=== PATIENT | female | born 1950 | race Caucasian/White ===

== ENCOUNTER 2016-04-04 10:38 | Emergency (ER) | payer OTHER ==
[~2016-04-04] VITALS: Ht 162.6 cm; Wt 52.2 kg
[2016-04-04] MEDS ORDERED: HYDROCODONE-AP1 EAC6 PO (12:23)
[2016-04-04] MEDS ORDERED: XARELTO10 MG PO (12:23)
[2016-04-04] MEDS ORDERED: AUGMENTIN 875875 MG PO (12:24)
[2016-04-04] MEDS ORDERED: PREDNISONE 5 MG5 M1 PO (12:24)
[2016-04-04] MEDS ORDERED: NORVASC5 MG PO (12:24)
[2016-04-04] MEDS ORDERED: CITALOPRAM HBR40 MG PO (12:24)
[2016-04-04] MEDS ORDERED: TACROLIMUS1 MG PO (12:24)
[2016-04-04] MEDS ORDERED: LEVOTHYROXIN0.025 MG PO (12:27)
[2016-04-04] MEDS ORDERED: CITRATE OF MAG296 ML PO (12:32)
[2016-04-04] MEDS ORDERED: COLACE100 MG PO (12:32)
[2016-04-04 12:34] VITALS: BP 121/64
== END 2016-04-04 12:34 | disposition home or self-care (01) ==
LOC: ER 10:38
DX: K59.00 Constipation, unspecified (principal); Z94.4 Liver transplant status; I10 Essential (primary) hypertension; Z98.890 Other specified postprocedural states

== ENCOUNTER 2016-06-11 17:21 | Emergency (ER) | payer OTHER ==
[~2016-06-11] VITALS: Ht 162.6 cm; Wt 49.4 kg
--- NOTE | ~2016-06-11 | EKG ---
[place] [address] [facility] [employer] [place] [address] ELECTROCARDIOGRAM REPORT Name: MEME BURGOS Room #: DEP Yulisa#: [id number] Admission: 06/11/16 Attend Phys: Discharge: 06/11/16 Date of : 50 Report #: [id number] THIS REPORT FOR: //name// [facility] ED Test Date: 2016-06-11 Test Time: 17:28:59 Pat Name: MEME BURGOS Department: Room: Gender: F [employer] [address] Freight: BENNY : 1950 Requested By: Alex Villeda Order Number: [id number] MD: Teo Adams Measurements Intervals [place] Rate: 76 P: 20 UT: 166 QRS: -20 QRSD: 88 T: 27 QT: 434 QTc: 489 Interpretive Statements Sinus rhythm Inferior infarct, old No previous ECG available for comparison Electronically Signed On 06-12-2016 15:28:56 CDT by Teo Adams [email or web address] <ELECTRONICALLY SIGNED> By: Teo Adams MD 06/12/16 1528 1728 1728 Teo Adams MD /JACQUIE
[~2016-06-11 17:21] MED LIST: AUGMENTIN 875875 MG PO; CITALOPRAM HBR40 MG PO; CITRATE OF MAG296 ML PO; COLACE100 MG PO; HYDROCODONE-AP1 EAC6 PO; LEVOTHYROXIN0.025 MG PO; NORVASC5 MG PO; PREDNISONE 5 MG5 M1 PO; TACROLIMUS1 MG PO; XARELTO10 MG PO
[2016-06-11 18:34] LABS: HEMATOCRIT 46.9 % (37.0-47.0); HEMOGLOBIN 16.1 gm/dL (12.0-15.0); MCH 30.9 pg (26.0-34.0); MCHC 34.2 g/dL (28.0-37.0); MCV 90.3 fL (80.0-100.0); RBC 5.2 mil/uL (4.20-5.00); RDW 13.9 % (10.5-14.5); WBC 7.7 thou/uL (4.0-11.0)
[2016-06-11 18:40] LABS: ANION GAP 10 mmol/L (7-16); BUN 11 mg/dL (7-18); CALCIUM 9.9 mg/dL (8.5-10.1); CHLORIDE 107 mmol/L (98-107); CO2 24 mmol/L (21-32); CREATININE 0.7 mg/dL (0.6-1.3); GLUCOSE 90 mg/dL (70-99); POTASSIUM 3.7 mmol/L (3.5-5.1); SODIUM 141 mmol/L (136-145)
[2016-06-11 18:48] LABS: TROPONIN-I < 0.04 ng/mL (<0.04-0.07)
[2016-06-11 18:51] LABS: APTT 29.2 Seconds (24.5-32.8); INR 1.1; PROTIME 11.4 Seconds (9.3-11.4)
[2016-06-11 21:02] VITALS: BP 153/89
== END 2016-06-11 21:03 | disposition home or self-care (01) ==
LOC: ER 17:21
PROVIDERS: Emergency Medicine
DX: R20.0 Anesthesia of skin (principal); R61 Generalized hyperhidrosis; Z98.890 Other specified postprocedural states; Z94.4 Liver transplant status; I10 Essential (primary) hypertension; F17.210 Nicotine dependence, cigarettes, uncomplicated; F10.99 Alcohol use, unspecified with unspecified alcohol-induced disorder

== ENCOUNTER → 2016-08-06 | Outpatient (CLI) | payer OTHER | LOC: ULTRA 08:03 | DX: Z94.4 Liver transplant status (principal) ==

== ENCOUNTER → 2016-08-10 | Outpatient (CLI) | payer OTHER | LOC: NUC 08:04 | DX: M81.0 Age-related osteoporosis without current pathological fracture (principal); N91.2 Amenorrhea, unspecified; Z78.0 Asymptomatic menopausal state; Z94.4 Liver transplant status ==

== ENCOUNTER → 2016-08-16 | Outpatient (CLI) | payer OTHER | LOC: RAD 09:42 | DX: Z12.31 Encounter for screening mammogram for malignant neoplasm of breast (principal) ==

== ENCOUNTER 2016-12-20 14:14 | Emergency (ER) | payer OTHER ==
[~2016-12-20] VITALS: Ht 165.1 cm; Wt 54.4 kg
--- NOTE | ~2016-12-20 | EKG ---
[address] [address] ELECTROCARDIOGRAM REPORT Name: MEME BURGOS Room #: DEP [facility]#: [id number] Admission: 12/20/16 Attend Phys: Discharge: 12/20/16 Date of : 50 Report #: [id number] THIS REPORT FOR: //name// [facility] ED Test Date: 2016-12-20 Test Time: 14:48:31 Pat Name: MEME BURGOS Department: Room: Gender: F Photograph Enlarger: [id number] : 1950 Requested By: Elizabet Mccann Order Number: [id number] MD: Teo Adams Measurements Intervals [place] Rate: 81 P: 51 DC: 158 QRS: 17 QRSD: 77 T: 41 QT: 428 QTc: 497 Interpretive Statements Sinus rhythm Borderline prolonged QT interval Compared to ECG 06/11/2016 17:28:59 Myocardial infarct finding no longer present Electronically Signed On 12-20-2016 22:45:24 CDT by Teo Adams [email or web address] <ELECTRONICALLY SIGNED> By: Teo Adams MD 12/20/16 2245 1448 1448 Teo Adams MD /JACQUIE
[2016-12-20 14:57] LABS: URINE BILIRUBIN 1+ (Negative); URINE BLOOD 1+ (Negative); URINE COLOR YELLOW; URINE GLUCOSE-RANDOM* NEGATIVE (Negative); URINE KETONES 3+ (Negative); URINE PROTEIN (DIPSTICK) 1+ (Negative); URINE SPECIFIC GRAVITY >= 1.030 (1.003-1.035); URINE UROBILINOGEN 0.2 E.U./dl (0.2-1.0)
[2016-12-20 15:04] LABS: ICTOTEST (BILI CONFIRMATORY) Negative (Negative); URINE LEUKOCYTES-REFLEX TRACE (Negative)
[2016-12-20 15:12] LABS: HEMATOCRIT 51.3 % (37.0-47.0); HEMOGLOBIN 17.5 gm/dL (12.0-15.0); MCH 31.3 pg (26.0-34.0); MCHC 34.1 g/dL (28.0-37.0); MCV 91.7 fL (80.0-100.0); PLATELET COUNT 182 thou/uL (150-400); RBC 5.59 mil/uL (4.20-5.00); RDW 13.5 % (10.5-14.5); WBC 21.8 thou/uL (4.0-11.0)
[2016-12-20 15:13] LABS: CASTS None Seen /LPF (None Seen); CRYSTALS None Seen /LPF (None Seen); SQUAMOUS >10 Many /LPF (0-3); URINE WBC-REFLEX 6-15 Few /HPF (0-5)
[2016-12-20 15:13] LABS: MANUAL DIFF YES
[2016-12-20 15:14] LABS: URINE RBC None Seen /HPF (0-2)
[2016-12-20 15:24] LABS: ANION GAP 17 mmol/L (7-16); BUN 17 mg/dL (7-18); CALCIUM 10.3 mg/dL (8.5-10.1); CHLORIDE 97 mmol/L (98-107); CO2 18 mmol/L (21-32); GLUCOSE 160 mg/dL (74-106); SODIUM 132 mmol/L (136-145)
[2016-12-20 15:34] LABS: ALBUMIN 4.4 g/dL (3.4-5.0); ALKALINE PHOSPHATASE 109 U/L (46-116); DIRECT BILIRUBIN 0.3 mg/dL (<0.1-0.3); SGOT 20 U/L (15-37); SGPT 16 U/L (30-65); TOTAL BILIRUBIN 1.7 mg/dL (<0.1-1.0); TOTAL PROTEIN 8.1 g/dL (6.4-8.2); TROPONIN-I < 0.04 ng/mL (<0.04-0.07)
[2016-12-20 15:39] LABS: ABSOLUTE NEUTROPHILS 18.5 thou/uL (1.4-8.2); ANISOCYTOSIS 1+; TOTAL CELL COUNT 100
[2016-12-20 15:40] LABS: POLYCHROMASIA OCCASIONAL
[2016-12-20] MEDS ORDERED: ZOFRAN ODT4 MG PO (17:53)
[2016-12-20] MEDS ORDERED: KEFLEX500 MG PO (17:55)
[2016-12-20 18:18] VITALS: BP 148/77
== END 2016-12-20 18:33 | disposition home or self-care (01) ==
LOC: ER 14:14
PROVIDERS: Emergency Medicine
DX: E86.0 Dehydration (principal); N39.0 Urinary tract infection, site not specified; I10 Essential (primary) hypertension; K74.60 Unspecified cirrhosis of liver; F10.99 Alcohol use, unspecified with unspecified alcohol-induced disorder; Z90.49 Acquired absence of other specified parts of digestive tract

== ENCOUNTER → 2018-09-06 | Outpatient (CLI) | payer OTHER ==
[~2018-09-06] MED LIST changes: +KEFLEX500 MG PO; +ZOFRAN ODT4 MG PO
== END ==
LOC: ULTRA 07:55
DX: Z12.31 Encounter for screening mammogram for malignant neoplasm of breast (principal); M81.0 Age-related osteoporosis without current pathological fracture; I70.0 Atherosclerosis of aorta; E28.39 Other primary ovarian failure; Z79.52 Long term (current) use of systemic steroids; Z94.4 Liver transplant status; Z90.49 Acquired absence of other specified parts of digestive tract

== ENCOUNTER → 2018-09-13 | Outpatient (CLI) | payer OTHER | LOC: CAT 10:26 | DX: K57.90 Diverticulosis of intestine, part unspecified, without perforation or abscess without bleeding (principal); N83.201 Unspecified ovarian cyst, right side; I71.4 Abdominal aortic aneurysm, without rupture ==

== ENCOUNTER → 2018-10-04 | Outpatient (CLI) | payer OTHER ==
[~2018-10-04] VITALS: Ht 162.6 cm; Wt 49.0 kg
[2018-10-04 07:51] VITALS: BP 138/71
== END | disposition home or self-care (01) ==
LOC: SPEC 06:22
DX: I71.4 Abdominal aortic aneurysm, without rupture (principal); I70.1 Atherosclerosis of renal artery; I10 Essential (primary) hypertension; F17.210 Nicotine dependence, cigarettes, uncomplicated; Z90.49 Acquired absence of other specified parts of digestive tract; Z98.890 Other specified postprocedural states; Z94.4 Liver transplant status; Z79.899 Other long term (current) drug therapy; Z87.440 Personal history of urinary (tract) infections

== ENCOUNTER 2018-10-20 05:26 | Inpatient (IN) | payer OTHER ==
[2018-10-12 10:46] LABS: ABSOLUTE NEUTROPHILS 3.9 thou/uL (1.4-8.2); BASOPHILS 0.6 % (0.0-2.0); EOSINOPHILS 5.6 % (0.0-3.0); HEMATOCRIT 45.1 % (37.0-47.0); HEMOGLOBIN 15.3 gm/dL (12.0-15.0); LYMPHOCYTES 28.6 % (24.0-44.0); MCH 31.5 pg (26.0-34.0); MCV 92.8 fL (80.0-100.0); MONOCYTES 8.6 % (1.0-8.0); PLATELET COUNT 210 thou/uL (150-400); POLYS 56.6 % (36.0-66.0); RBC 4.86 mil/uL (4.20-5.00); RDW 13.9 % (10.5-14.5); WBC 6.9 thou/uL (4.0-11.0)
[2018-10-12 10:58] LABS: APTT 28.7 Seconds (24.5-32.8); INR 1.1
[2018-10-12 11:00] LABS: CALCIUM 9.4 mg/dL (8.5-10.1); CREATININE 0.9 mg/dL (0.6-1.0); POTASSIUM 3.4 mmol/L (3.5-5.1); TOTAL BILIRUBIN 0.7 mg/dL (<0.1-1.0)
[2018-10-12 11:06] LABS: URINE BILIRUBIN NEGATIVE (Negative); URINE BLOOD NEGATIVE (Negative); URINE CLARITY CLEAR; URINE COLOR YELLOW; URINE GLUCOSE-RANDOM* NEGATIVE (Negative); URINE KETONES NEGATIVE (Negative); URINE LEUKOCYTES-REFLEX NEGATIVE (Negative); URINE NITRITE-REFLEX NEGATIVE (Negative); URINE PROTEIN (DIPSTICK) NEGATIVE (Negative); URINE SPECIFIC GRAVITY 1.025 (1.005-1.035)
--- NOTE | 2018-10-12 12:57 | EKG ---
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
[2018-10-20] VITALS (9 sets, daily range): BP systolic 102–126; BP diastolic 57–71
[~2018-10-20] VITALS: Ht 152.4 cm; Wt 50.3 kg
[~2018-10-20 05:26] MED LIST changes: +SYNTHROID25 MC1 PO; +SYNTHROID50 MCG PO
--- NOTE | 2018-10-20 19:52 | NUR ---
RECEIVED PATIENT FROM PACU AT 1300. DROWSY. FOLLOWS COMMANDS AND MOVES ALL EXTREMITIES. NO COMPLAINTS OF PAIN OR NAUSEA. SIPS OF WATER TOLERATED WELL. B GROIN SITES WITH DRESSINGS INTACT AND NO SIGNS OF HEMATOMA. SR ON MONITOR. R RADIAL RAIMUNDO WITH GOOD WAVE FORM AND CDI DRESSING. BEAR HUGGER APPLIED TO KEEP PATIENT TEMP ABOVE 96. WILL CONTINUE TO MONITOR
[2018-10-21] VITALS (7 sets, daily range): BP systolic 111–125; BP diastolic 48–54
[2018-10-21 05:48] LABS: HEMOGLOBIN 12.7 gm/dL (12.0-15.0); MCH 31.4 pg (26.0-34.0); MCHC 34.2 g/dL (28.0-37.0); MCV 91.9 fL (80.0-100.0); RBC 4.03 mil/uL (4.20-5.00); RDW 14.1 % (10.5-14.5); WBC 15.1 thou/uL (4.0-11.0)
[2018-10-21 06:06] LABS: CALCIUM 8.3 mg/dL (8.5-10.1)
--- NOTE | 2018-10-21 07:00 | NUR ---
Pt slept well through the night with stable VS. PRN fentanyl and hydrocodone given for c/o pain with desired effects achieved. Urine output adequate for shift and pt taking PO with no c/o nausea. Right and left groin sites unchanged from yesterday. Am lab results noted, continue with POC.
--- NOTE | 2018-10-22 10:55 | O ---
[facility] [place] [address] OPERATIVE REPORT Name: MEME BURGOS Room #: 241-P [facility] M.R.#: [id number] Admission: 10/21/18 Attend Phys: Neville Martin MD Discharge: 10/21/18 Date of : 50 Report #: [id number] THIS REPORT FOR: //name// CC: Neville Chacko PREOPERATIVE DIAGNOSIS: Saccular abdominal aortic aneurysm. POSTOPERATIVE DIAGNOSIS: Saccular abdominal aortic aneurysm. OPERATION: Stent graft implant for abdominal aortic aneurysm with intraoperative arteriograms. SURGEON: Neville Martin MD and Lamine Drake MD. ANESTHESIA: General. INDICATIONS: The patient is a 68-year-old with a rather large and unusual saccular abdominal aortic aneurysm. The patient has a history of liver transplantation, has previous abdominal surgery. FINDINGS AND TECHNIQUE: After general anesthesia was established, an incision was made in each groin to expose the common femoral artery. A 10,000 units of heparin were given on each side, the common femoral was entered with an arterial needle followed by a J-wire and then a 6-Welsh sheath was placed. Through the sheath, a J-wire was placed and over this Berenstein catheter was used as an exchange catheter to place a stiff wire. Over the stiff wire, the 6-Welsh sheath was removed and on the right side, a 16-Welsh dilator and sheath were placed and on the left side, a 12-Welsh dilator and sheath were placed. With these devices in place through the right side, we placed a 23 x 12 x 12 cm device. The renal artery was identified with the visceral catheter through the left groin and this was used to accurately place the device just below the left renal artery orifice. This was a particularly important placement as the distance between the infrarenal the lowest renal artery on the aortic bifurcation was relatively small. We felt that we could place the device and opened the device and cannulate the gate with just enough room. This proved to be the case. The main body was partially deployed and the opening was right at the left common iliac origin. Through the left side, the contralateral gate was cannulated, the spin technique using the pigtail catheter was used to ascertain good placement and then the [facility] [address] [place] [address] OPERATIVE REPORT Name: MEME BURGOS Room #: 241-P [facility] IN M.R.#: [id number] Admission: 10/21/18 Attend Phys: Nevilel Martin MD Discharge: 10/21/18 Date of : 50 Report #: [id number] stiff wire was replaced and an arteriogram was done to demonstrate the distance from the gate to the hypogastric takeoff. A 12 x 12 mm x 10 cm device was selected and placed at the contralateral gate. The noncompliant balloon was used to seat the main body at the renal artery and to fully expand the contralateral limb inside the contralateral gate. On both sides, noncompliant balloons were used to fully dilate the limbs, particularly at the aortic bifurcation where there was not much excess room. When we had completely dilated the graft, a final arteriogram was taken using the pigtail catheter and this showed good placement with no endograft leaks. Thus completed, the dilators were replaced in the sheath. Sheaths were removed over the guidewires and then on each side, the femoral artery was repaired with interrupted Prolene. Flow was reestablished. Heparin, which had been given at the outset, was now reversed with protamine and hemostasis was ascertained, the wounds were closed in layers. The patient was taken to the recovery area in good condition with warm feet and good Doppler signals distally. <ELECTRONICALLY SIGNED> By: Neville Martin MD 10/22/18 1055 1318 1330 Neville Martin MD /nt
== END 2018-10-21 14:00 | disposition home or self-care (01) | DRG 269 ==
LOC: PRE 05:26 → ICU 06:01 → TBA 06:01 → PRE 09:06 → ICU 12:41 → PRE 12:46 → ICU 10-21 11:03
PROVIDERS: Physician Assistant; ADMIT Surgery Vascular Surgery
PROC: B4181ZZ Fluoroscopy of Bilateral Renal Arteries using Low Osmolar Contrast (ICD-10-PCS; principal; 2018-10-21)
PROC: 04V03D6 (ICD-10-PCS; principal; 2018-10-21)
DX: I71.4 Abdominal aortic aneurysm, without rupture (principal); Z94.4 Liver transplant status; I10 Essential (primary) hypertension; E03.9 Hypothyroidism, unspecified; Z79.899 Other long term (current) drug therapy
CPT/HCPCS: 10078; 47375; 48888; 50010; 50101; 50386; 50455; 51078; 51751; 54118; 56524; 56526; 56531; 56668; 56760; 62110; 62900; 70005

== ENCOUNTER → 2018-11-20 | Outpatient (CLI) | payer OTHER ==
[2018-11-20 08:21] LABS: CREATININE 0.8 mg/dL (0.6-1.0)
== END ==
LOC: CAT 07:38
PROVIDERS: Nuclear Medicine Nuclear Cardiology
DX: N28.1 Cyst of kidney, acquired (principal); I71.4 Abdominal aortic aneurysm, without rupture; I25.10 Atherosclerotic heart disease of native coronary artery without angina pectoris; M16.0 Bilateral primary osteoarthritis of hip; Z95.828 Presence of other vascular implants and grafts; Z90.49 Acquired absence of other specified parts of digestive tract

== ENCOUNTER → 2019-04-10 | Outpatient (CLI) | payer OTHER | LOC: CAT 16:01 | DX: Z13.6 Encounter for screening for cardiovascular disorders (principal); E78.00 Pure hypercholesterolemia, unspecified; I25.10 Atherosclerotic heart disease of native coronary artery without angina pectoris ==

== ENCOUNTER → 2019-04-10 | Outpatient (CLI) | payer OTHER ==
[~2019-04-10] MED LIST changes: +CRESTOR5 MG PO; +LEXAPRO 10 MG T10 M2 PO
== END ==
LOC: SJCVC 15:00
DX: I25.10 Atherosclerotic heart disease of native coronary artery without angina pectoris (principal); I71.4 Abdominal aortic aneurysm, without rupture; I10 Essential (primary) hypertension; E78.5 Hyperlipidemia, unspecified; M81.0 Age-related osteoporosis without current pathological fracture; Z79.899 Other long term (current) drug therapy

== ENCOUNTER → 2019-04-20 | Outpatient (CLI) | payer OTHER | LOC: SJCVCIMAG 04-16 08:56 | DX: I25.89 Other forms of chronic ischemic heart disease (principal); R07.9 Chest pain, unspecified; E78.5 Hyperlipidemia, unspecified; F17.200 Nicotine dependence, unspecified, uncomplicated ==

== ENCOUNTER → 2019-04-26 | Outpatient (CLI) | payer OTHER ==
[~2019-04-26] VITALS: Ht 162.6 cm; Wt 47.6 kg
[2019-04-26 09:42] VITALS: BP 119/73
[2019-04-26 10:04] LABS: HEMATOCRIT 45.1 % (37.0-47.0); HEMOGLOBIN 15.1 gm/dL (12.0-15.0); MCH 31.2 pg (26.0-34.0); MCHC 33.5 g/dL (28.0-37.0); MCV 93.3 fL (80.0-100.0); RBC 4.84 mil/uL (4.20-5.00); RDW 14.5 % (10.5-14.5); WBC 6.8 thou/uL (4.0-11.0)
[2019-04-26 10:15] LABS: CALCIUM 9.2 mg/dL (8.5-10.1); CREATININE 0.8 mg/dL (0.6-1.0); POTASSIUM 3.7 mmol/L (3.5-5.1)
--- NOTE | 2019-04-26 16:17 | EKG ---
[facility] [place] [address] ELECTROCARDIOGRAM REPORT Name: MEME BURGOS Room #: PRE [facility]..#: [id number] Admission: Attend Phys: Viral Molina MD, Discharge: Date of : 50 Report #: [id number] THIS REPORT FOR: cc: Allan Chacko MD, Neal A. MD Couchonnal, Luis F. MD ~ THIS REPORT FOR: //name// [facility] Test Date: 2019-04-26 Test Time: 09:57:34 Pat Name: MEME BURGOS Department: Room: Gender: Bone Puller: Arjun JACK : 1950 Requested By: Viral Molina Order Number: [id number] MD: Teo Adams Measurements Intervals [place] Rate: 56 P: 38 SC: 166 QRS: 0 QRSD: 78 T: 44 QT: 457 QTc: 442 Interpretive Statements Sinus rhythm Compared to ECG 10/12/2018 10:40:18 No significant changes Electronically Signed On 04-26-2019 16:16:23 [employer] by Teo Adams [email or web address] <ELECTRONICALLY SIGNED> By: Teo Adams MD 04/26/19 1616 0957 0957 Teo Adams MD /EPI
--- NOTE | 2019-04-26 16:27 | CATHLAB ---
[facility] [place] [address] INVASIVE PROCEDURE REPORT Name: MEME BURGOS Room #: PRE [facility] M.R.#: [id number] Admission: Attend Phys: Viral Molina MD, Discharge: Date of : 50 Report #: [id number] THIS REPORT FOR: cc: Allan Chacko MD, Neal A. MD Mancuso, Gerald M. MD [facility] ~ APPROVED REPORT Study performed: 04/26/2019 10:42:53 Procedure Narrative The Right Groin^ was infiltrated with 1% Lidocaine subcutaneous anesthesia. A PINNACLE 6FR Sheath #[id number] sheath was inserted into the RFA^. Coronary angiography was performed using coronary diagnostic catheters. The right coronary system was accessed and visualized with a JR4 catheter. The left coronary system was accessed and visualized with a JL4 catheter. The left ventricle was accessed and visualized with a PIGTAIL catheter. Left ventriculogram was performed in 30 degree projection. An aortogram of the abdominal aorta was performed. Closure device was deployed with a 6 Fr MYNXGRIP 6/7F #[id number]. The patient tolerated the procedure well and there were no complications associated with the procedure. There was no hematoma. Intraoperative Conscious Sedation Sedation start time: 10.53 Case end Time: 11.20 Fentanyl 50 mcg Versed 1 mg Fluoro Time: 1.21 minutes Dose: DAP 1140.00 cGycm2 118 mGy Contrast Type and Amount: Omnipaque 115 ml Hemodynamics The aortic pressure is 134/66 mmHg with a mean of 88 mmHg. The left ventricular pressure is 139/8 mmHg with a mean of mmHg. The left ventricular end diastolic pressure is 21 mmHg. Conclusion #1 normal left ventricular size and systolic function EF 55-60% #2 abdominal aortogram reveals an intact aortic stent graft. Renal arteries are patent above the stent graft. There is no apparent endoleak. Brisk flow into the iliac system. No remnant aneurysm is filling. [facility] [place] [place] [address] INVASIVE PROCEDURE REPORT Name: LORETTAMEME MARIA DEL CARMEN Room #: [facility]#: [id number] Admission: Attend Phys: Viral Molina, Discharge: Date of : 50 Report #: [id number] #3 left main with mild disease in distal calcification 20% distal lesion giving rise to LAD and circumflex #4 LAD with mild irregularities no significant occlusive disease. Mild proximal calcification. #5 circumflex OM is nondominant with small caliber OM system no occlusive disease #6 dominant right coronary moderate extensive calcification is noted throughout 40-50% proximal lesions 3040% distal lesions PDA NAV well preserved Recommendations and plan: Continue aggressive risk factor modification. No indication for coronary intervention. Nuclear stress test revealing false positive findings. <ELECTRONICALLY SIGNED> By: Viral Molina MD, [facility] 04/26/19 1626 162 25 Viral Molina MD, [facility] /INF
== END | disposition home or self-care (01) ==
LOC: CATH 08:00
PROVIDERS: Internal Medicine Cardiovascular Disease
DX: R94.39 Abnormal result of other cardiovascular function study (principal); I25.10 Atherosclerotic heart disease of native coronary artery without angina pectoris; I25.84 Coronary atherosclerosis due to calcified coronary lesion; I10 Essential (primary) hypertension; E03.9 Hypothyroidism, unspecified; F32.9 Major depressive disorder, single episode, unspecified; F17.210 Nicotine dependence, cigarettes, uncomplicated; Z98.890 Other specified postprocedural states; Z79.899 Other long term (current) drug therapy; Z90.49 Acquired absence of other specified parts of digestive tract; Z85.828 Personal history of other malignant neoplasm of skin; Z94.4 Liver transplant status

== ENCOUNTER → 2019-08-30 | Outpatient (CLI) | payer OTHER | LOC: SJCVC 09:54 | PROVIDERS: ATTEND Internal Medicine Cardiovascular Disease | DX: I25.10 Atherosclerotic heart disease of native coronary artery without angina pectoris (principal); I49.1 Atrial premature depolarization; I10 Essential (primary) hypertension; I71.4 Abdominal aortic aneurysm, without rupture; I73.9 Peripheral vascular disease, unspecified; E78.5 Hyperlipidemia, unspecified; F17.200 Nicotine dependence, unspecified, uncomplicated; Z94.4 Liver transplant status; Z79.899 Other long term (current) drug therapy ==

== ENCOUNTER → 2019-09-21 | Outpatient (CLI) | payer OTHER ==
[2019-09-21 10:25] LABS: CREATININE 0.8 mg/dL (0.6-1.0)
== END ==
LOC: CAT 09:39
PROVIDERS: ATTEND Nuclear Medicine Nuclear Cardiology
DX: Z01.812 Encounter for preprocedural laboratory examination (principal); I71.4 Abdominal aortic aneurysm, without rupture; N85.8 Other specified noninflammatory disorders of uterus; K57.30 Diverticulosis of large intestine without perforation or abscess without bleeding; I72.8 Aneurysm of other specified arteries

== ENCOUNTER → 2020-07-15 | Outpatient (CLI) | payer OTHER | LOC: SJCVC 16:23 | PROVIDERS: ATTEND Internal Medicine Cardiovascular Disease | DX: I25.10 Atherosclerotic heart disease of native coronary artery without angina pectoris (principal); I71.4 Abdominal aortic aneurysm, without rupture; I10 Essential (primary) hypertension; E78.5 Hyperlipidemia, unspecified; I77.9 Disorder of arteries and arterioles, unspecified; M81.0 Age-related osteoporosis without current pathological fracture; F17.210 Nicotine dependence, cigarettes, uncomplicated; Z95.828 Presence of other vascular implants and grafts; Z94.4 Liver transplant status; Z79.899 Other long term (current) drug therapy ==

== ENCOUNTER → 2020-07-15 | Outpatient (CLI) | payer OTHER ==
[2020-07-15 15:03] LABS: CREATININE 1.1 mg/dL (0.6-1.0)
== END ==
LOC: LAB 11:03
PROVIDERS: ATTEND Nuclear Medicine Nuclear Cardiology
DX: I71.4 Abdominal aortic aneurysm, without rupture (principal); I70.1 Atherosclerosis of renal artery; I72.8 Aneurysm of other specified arteries; I25.10 Atherosclerotic heart disease of native coronary artery without angina pectoris; K57.30 Diverticulosis of large intestine without perforation or abscess without bleeding; N28.1 Cyst of kidney, acquired; Z90.49 Acquired absence of other specified parts of digestive tract; Z95.828 Presence of other vascular implants and grafts